=== PATIENT | female | born 1965 | race Caucasian/White ===

== ENCOUNTER 2023-06-11 08:08 | Emergency (ER) | payer OTHER, SELFPAY ==
[2023-06-11 08:25] VITALS: BP 137/84; PULSE 71; RESP 16; TEMP 37.2; O2SAT 97
[2023-06-11 08:28] VITALS: BP 137/84; PULSE 71; RESP 16; TEMP 37.2; O2SAT 97
--- NOTE | 2023-06-11 08:57 | ED.URI ---
HPI - URI/Sore Throat General Chief Complaint: Upper Respiratory Infection Stated Complaint: throat/congestion History of Present Illness HPI Narrative: 57 y/o female presented for c/o sinus congestion and sore throat for 2 days, started with cough and felt worse last night. Takes navneet and flonase regularly. Took Sudafed last night. Denies sob wheezing, n/v/d/f/c. Related Data Home Medications Medication Instructions Recorded Confirmed ergocalciferol (vitamin D2) 1,250 1,250 mcg PO DAILY 06/11/23 06/11/23 mcg (50,000 unit) capsule levothyroxine 125 mcg tablet 125 mcg PO DAILY 06/11/23 06/11/23 Allergies Allergy/AdvReac Type Severity Reaction Status Date / Time No Known Allergies Allergy Verified 06/11/23 08:37 Review of Systems Review of Systems: CONSTITUTIONAL: Denies body aches, fever, chills, or sweats. EYES: Denies visual changes, redness, or discharge. ENT: reports rhinorrhea, congestion, sore throat CARDIOVASCULAR: Denies chest pain, palpitations, or edema. RESPIRATORY: Denies dyspnea. GASTROINTESTINAL: Denies abdominal pain, nausea, vomiting, or diarrhea. SKIN: Denies rash, itching, or wounds. MUSCULOSKELETAL: Denies back pain, joint pain, or myalgia. NEUROLOGIC: Denies headache [facility] Past Medical History Medical History (Updated 06/11/23 @ 09:05 by Latha Tee APRN) Hypothyroid Exam Narrative: GENERAL: well-appearing, no acute distress. EYES: conjunctivae clear ENT: Mucous membranes moist. TM pearly rosario with normal light reflex bilaterally; no tragal tenderness. Oropharynx erythematous without lesions. Tonsils absent. No drooling, no hoarseness, no trismus, uvula midline. No tripod positioning, hot potato voice, or soft palate swelling. NECK: Supple. No lymphadenopathy CHEST: Clear to auscultation, breath sounds equal. No respiratory distress, speaks in full sentences. HEART: Regular rate and rhythm. No murmur heard. SKIN: Warm, dry, no rash. NEURO: Alert and oriented x3. Course Course Emergency Course: Patient is aware of diagnosis, understands and agrees to treatment plan. Anticipatory guidance given. Patient agrees to follow-up as directed and is aware of reasons to seek care at the emergency department. Portions of this record may have been created with voice recognition software Level of Care: Express Care Visit Vital Signs Vital signs: Vital Signs Temperature 98.9 F 06/11/23 08:25 Pulse Rate 71 06/11/23 08:25 Respiratory Rate 16 06/11/23 08:25 Blood Pressure 137/84 06/11/23 08:25 Pulse Oximetry 97 06/11/23 08:25 Oxygen Delivery Room Air 06/11/23 08:25 Temperature 98.9 F 06/11/23 08:28 Pulse Rate 71 06/11/23 08:28 Respiratory Rate 16 06/11/23 08:28 Blood Pressure 137/84 06/11/23 08:28 Pulse Oximetry 97 06/11/23 08:28 Oxygen Delivery Room Air 06/11/23 08:28 MDM - URI/Sore Throat MDM Narrative Medical decision making narrative: Negative COVID, flu, strep result reviewed with pt. Advise supportive treatments. Patient is appropriate for outpatient treatment and follow-up. Differential Diagnosis Differential diagnosis: Likely upper respiratory infection, viral infection and pharyngitis Discharge Plan Discharge Clinical Impression: Upper respiratory infection Patient Disposition: Home, Self-Care Condition: Stable Instructions: Antibiotic Form, Upper Respiratory Infection (ED) Additional Instructions: COVID and flu test negative. Your rapid covid test was negative today. It may be too early to detect the virus, therefore we recommend retesting at home in 1-2 days Continue to follow general precautions: frequent handwashing, wear a mask, isolate/social distance, and avoid crowds if you have a fever. You must be fever free for 24 hours without the use of fever reducing medication (Tylenol/ibuprofen) before returning to work/school/crowds. Rapid strep swab was negative today You w
== END 2023-06-11 09:05 | disposition home or self-care (01) ==
PROVIDERS: Emergency Provider Nurse Practitioner Family; PCP Physician Assistant
DX: J06.9 Acute upper respiratory infection, unspecified (principal); E03.9 Hypothyroidism, unspecified; Z79.899 Other long term (current) drug therapy; Z20.822 Contact with and (suspected) exposure to COVID-19
CPT/HCPCS: 87081; 87426; 87804; 87880; 99213; C9803; G0463